=== PATIENT | female | born 1975 | race Caucasian/White ===

== ENCOUNTER → 2016-04-29 17:42 | Outpatient (CLI) | payer BC | END | disposition home or self-care (01) | LOC: D.MAMMO 08:30 | DX: R92.8 Other abnormal and inconclusive findings on diagnostic imaging of breast (principal) ==

== ENCOUNTER → 2017-05-19 16:43 | Outpatient (CLI) | payer BC | END | disposition home or self-care (01) | LOC: D.MAMMO 16:15 | DX: Z12.31 Encounter for screening mammogram for malignant neoplasm of breast (principal) ==

== ENCOUNTER 2018-08-07 05:39 | Inpatient (IN) | payer BC ==
[2018-08-04 11:26] LABS: BASOPHILS 0.2 % (0-2); EOSINOPHILS 0.6 % (0-7); HEMATOCRIT 40.2 % (36.0-48.0); HEMOGLOBIN 14.2 g/dL (12-16); IMMATURE GRANULOCYTES 0.2 % (0-5); LYMPHOCYTES 33.9 % (15-50); MCH 33.3 pg (26.0-34.0); MCHC 35.3 g/dL (31.0-37.0); MCV 94.1 fL (80.0-100.0); MEAN PLATELET VOLUME 8.7 fL (7.4-10.4); MONOCYTES 11.9 % (2-11); NEUTROPHILS 53.2 % (40-80); PLATELET COUNT 354 10x3/uL (130-400); RBC 4.27 10x6/uL (4.00-5.40); RDW 12.8 % (11.5-14.5)
[2018-08-04 11:40] LABS: CALC OSMOLALITY 276 mosm/kg (275-300); CALCIUM 9.6 mg/dL (8.5-10.1); CARBON DIOXIDE 25.7 mmol/L (21.0-32.0); CHLORIDE - SERUM 101 mmol/L (98-107); CREATININE - SERUM 0.8 mg/dL (0.6-1.3); GLUCOSE 107 mg/dL (74-106); POTASSIUM - SERUM 3.7 mmol/L (3.5-5.1); SODIUM 138 mmol/L (136-145); UREA NITROGEN 15 mg/dL (7-18); eGFR NON AFRICAN AMERICAN 82 mL/min (90-120)
[~2018-08-07] VITALS: Ht 152.4 cm; Wt 84.1 kg
[2018-08-07] VITALS (24 sets, daily range): BP systolic 119–157; BP diastolic 61–93; Ht 152.4 cm; Wt 84.1 kg
[~2018-08-07 05:39] MED LIST: CARDIZEM CD240 MG PO; COZAAR100 MG PO; HYDROCHLOROTHIA25 MG PO; LUNESTA2 M1 PO; PRAVACHOL40 MG PO
[2018-08-07] MEDS ORDERED: OMEPRAZOLE20 M1 PO (06:21)
[2018-08-07 06:33] LABS: HCG URINE NEGATIVE (NEGATIVE)
--- NOTE | 2018-08-07 11:58 | NUR ---
PT VOICES NO PAIN, JUST "I FEEL LIKE I NEED TO PEE". I VOICED TO PT THAT SHE HAS A HERRERA CATHETOR IN AND THAT IT CAN CAUSE PRESSURE TO FEEL LIKE SHE NEEDS TO VOICE. PT VOICED "OK". WILL CONTINUE TO MONITOR PAIN.
--- NOTE | 2018-08-07 13:00 | NUR ---
PT TO ROOM VIA STRETCHER FROM RR. MERY RN AT BEDSIDE AND STATES THAT REPORT HAS BEEN GIVEN TO PRIMARY NURSE, ANGEL VO. PT TRANSFERS TO BED PER SELF AND PLACED IN SEMI FOWLERS POSITION WITH PILLOW UNDER KNEES PER PT REQUEST. LR INFUSING TO IV IN LEFT WRIST, CONNECTED TO PUMP AT THIS TIME TO INFUSE AT 125ML/HR. IV SITE C/D/I. TEMP. 98.1; BP 147/78; P 107; R 18; O2 SAT 94% ON ROOM AIR. MERY RR RN STATES THAT SHE HAS REMAINED AROUND 94% DURING RR ROOM WELL. HERRERA IN PLACE AND DRAINING TO GRAVITY. 200MLS CLEAR YELLOW URINE NOTED IN COLLECTION CONTAINER. PT REPORTS DRY MOUTH AND DESIRE TO DRINK. WATER AND LIP BALM PROVIDED. ICE PACK PLACED OVER LOWER TRANSVERSE ABD INCISION. INCISION C/D/I WITH DERMABOND. PT GRIMACING AND REPORTS "DISCOMFORT." REPORTED TO PRIMARY RN.
--- NOTE | 2018-08-07 13:20 | NUR ---
PT NOTED TO HAVE CONTINUED O2SATS 91-94% DESPITE REMAINING ALERT AND TALKING. O2 INITIATED VIA NC AT 2L/MIN. O2 SAT INCREASED TO 97-98%. SCDS CONNECTED TO PUMP AND TURNED ON AT THIS TIME. PT REPORTS "PRESSURE AND CRAMPING" IN HER PELVIS. CONFIRMED WITH RR THAT THERE IS NO VAG. PACK IN PLACE. ABDOMEN SOFT TO PALPATION, PT DENIES INCREASED TENDERNESS WITH PALPATION. BS HYPO IN LOWER QUADRANTS, ACTIVE IN UPPER. NO VAGINAL BLEEDING NOTED AT THIS TIME. PT REPORTS THAT SHE TOOK HER HOME MEDICATION DOSE OF COREG THIS AM PRIOR TO SURGERY AND HER DAILY CARDIZEM ON 08/06/18 PRIOR TO BEDTIME. REPORT OF ABOVE NOTE GIVEN TO ANGEL MAYO RN.
--- NOTE | 2018-08-07 13:20 | NUR ---
DR VARELA TO ROOM TO DISCUSS POC WITH PT FAMILY. PT REPORTS TO MD THAT SHE WOULD LIKE HER PAIN MEDICATIONS TO BE SMALLER DOSES MORE FREQUENTLY. MD VERBALIZES UNDERSTANDING AND TO DESK TO GIVE FURTHER ORDERS TO PRIMARY RN.
--- NOTE | 2018-08-07 13:40 | NUR ---
report given to Dr Bedolla of pt request for a RECORDS CUSTODIAN. Order received for dilaudid salesperson neckties, see emar.
--- NOTE | 2018-08-07 14:00 | NUR ---
Assessment completed, pt is drowsy but will answer questions appropriatly. Rates pain at incision and lower back as a constant 7/10. Abdomen soft to touch and incision is clean and dry without dressing. Domínguez to bedside drain with 200ml clear yellow urine noted to canister. bowel sounds are hypoactive in both left and right lower quad. IV to left hand patent with no c/o tenderness, lr infusing per order via pump. SCD's as ordered and on pump. Dilaudid MULTIPLE PRESSURE RIVETER OPERATOR started, scanned to emar, and witnessed by Tc VO. Pt demonstrates understanding use of gifted teacher. Plan of care gone over with pt that is was ok with Dr Bedolla for her to transfer to CV/ICU as she previously requested. Family at bedside, side rails up x 2 with call light in reach.
--- NOTE | 2018-08-07 14:30 | NUR ---
REPORT CALLED TO [facility] CV/ICU.
--- NOTE | 2018-08-07 14:45 | NUR ---
Pt transfered via bed to CV/ICU with Milena Juan RN and Maria Isabel Armas RN.
--- NOTE | 2018-08-07 16:19 | NUR ---
PT RESTING QUIETLY AT THIS TIME. DENIES NEEDS. VSS. AT BEDSIDE. CALL LIGHT IN REACH.
--- NOTE | 2018-08-07 18:43 | NUR ---
SPOKE WITH DR VARELA ABOUT RESTARTING PT CARDIZEM. OK TO RESTART. HE WILL CALL EARLY AM TO CHECK ON PATIENT AND PROVIDE FURTHER ORDERS.
--- NOTE | 2018-08-07 19:29 | NUR ---
INFORMED BY DAY SHIFT RN THAT SHE HAD SPOKEN TO DR. VARELA REGARDING TACHYCARDIA, AND WAS INFORMED THAT IV FLUIDS WERE DECREASED TO 15 ML/HR DUE TO HIGH AMOUNT OF UOP. PATIENT STATES THAT SHE FEELS "BLADDER PRESSURE" ASSESSED HERRERA AND EMPTIED 1200 MLS OUT FROM COLLECTION BAG, PATIENT STATES THAT SHE FELT SOME RELIEF AFTER INTERVENTION. WILL CONTINUE TO MONITOR.
--- NOTE | 2018-08-07 19:31 | NUR ---
REPORT RECEIVED, SHIFT ASSESSMENT COMPLETED PER FLOW SHEET. PPP. LOWER ABDOMEN INCISION SITE NOTED, NO DRAINAGE. HERRERA CATHETER TO GRAVITY SECURED, DRAINING YELLOW UOP. LT WRIST PIV, PATENT, NO SIGNS OF INFECTION OR INFILTRATION NOTED. SEE FLOW SHEET FOR COMPLETE ASSESSMENT. CALL LIGHT AND SPECIMEN COLLECTOR BUTTON WITHIN REACH. JELL-O PROVIDED. WILL CONTINUE TO MONITOR.
--- NOTE | 2018-08-07 20:40 | NUR ---
CALL LIGHT ANSWERED, VANILLA ICE CREAM AND WATER PROVIDED PER PATIENT'S REQUEST. DENIES OTHER NEEDS. CALL LIGHT WITHIN REACH.
--- NOTE | 2018-08-07 22:00 | NUR ---
RESTING, NO ACUTE DISTRESS NOTED. DENIES NEEDS. CALL LIGHT WITHIN REACH.
--- NOTE | 2018-08-07 23:20 | NUR ---
REASSESSMENT COMPLETED PER FLOW SHEET, SEE FOR DETAILS. NO ACUTE DISTRESS NOTED. WILL CONTINUE TO MONITOR.
[2018-08-08] VITALS (26 sets, daily range): BP systolic 97–148; BP diastolic 48–82
--- NOTE | 2018-08-08 01:00 | NUR ---
RESTING, NO ACUTE DISTRESS NOTED. WILL CONTINUE TO MONITOR.
--- NOTE | 2018-08-08 02:08 | NUR ---
CALL LIGHT ANSWERED. WATER AND RED JELL-O PROVIDED. DENIES OTHER NEEDS. CALL LIGHT WITHIN REACH.
--- NOTE | 2018-08-08 03:37 | NUR ---
REASSESSMENT COMPLETED PER FLOW SHEET, SEE FOR DETAILS. NO ACUTE DISTRESS NOTED. DENIES NEEDS. WILL CONTINUE TO MONITOR. CALL LIGHT WITHIN REACH.
--- NOTE | 2018-08-08 05:00 | NUR ---
ICE PACK PROVIDED PER PATIENT'S REQUEST. DENIES OTHER NEEDS. CALL LIGHT AND SOCIAL SECRETARY BUTTON WITHIN REACH. WILL CONTINUE TO MONITOR.
--- NOTE | 2018-08-08 05:25 | NUR ---
SPOKE TO DR. VARELA, NEW ORDERS RECEIVED TO D/C IV AND IV FLUIDS, BUSINESS SEGMENT MANAGER, AND HERRERA, AND TO ORDER CBC AND CMP.
--- NOTE | 2018-08-08 05:37 | NUR ---
DISCONTINUED PIV, CATHETER TIP INTACT. D/C'D IV FLUIDS AND ELECTROMEDICAL EQUIPMENT TECHNICIAN. D/C'D HERRERA. TOLERATED ALL WELL.
[2018-08-08 06:41] LABS: BASOPHILS 0 % (0-2); EOSINOPHILS 0 % (0-7); HEMATOCRIT 41.3 % (36.0-48.0); HEMOGLOBIN 14.6 g/dL (12-16); IMMATURE GRANULOCYTES 0.2 % (0-5); LYMPHOCYTES 6.4 % (15-50); MCH 33.1 pg (26.0-34.0); MCHC 35.4 g/dL (31.0-37.0); MCV 93.7 fL (80.0-100.0); MEAN PLATELET VOLUME 8.9 fL (7.4-10.4); MONOCYTES 10.3 % (2-11); NEUTROPHILS 83.1 % (40-80); PLATELET COUNT 374 10x3/uL (130-400); RBC 4.41 10x6/uL (4.00-5.40); RDW 12.5 % (11.5-14.5); WBC 19.6 10x3/uL (4.8-10.8)
[2018-08-08 06:52] LABS: ANION GAP 16.8 mmol/L (8-16); BILIRUBIN - TOTAL 0.5 mg/dL (0.2-1.3); CALCIUM 9.2 mg/dL (8.5-10.1); CREATININE - SERUM 0.9 mg/dL (0.6-1.3); POTASSIUM - SERUM 3.8 mmol/L (3.5-5.1)
--- NOTE | 2018-08-08 08:06 | NUR ---
DR VARELA AT BEDSIDE SPEAKING WITH PATIENT AND . PLANS FOR ADDITIONAL DAY STAY FOR ANTIBIOTIC ADMINISTRATION.
--- NOTE | 2018-08-08 08:32 | OP ---
PATIENT NAME: INEZ ZAMORANO MEDICAL RECORD: [id number] :71 LOCATION:[facility] ADMISSION DATE: SURGEON: ZACKARY VARELA MD DATE OF OPERATION: 08/07/2018 PREOPERATIVE DIAGNOSIS: Symptomatic fibroid uterus. POSTOPERATIVE DIAGNOSES: 1. Symptomatic fibroid uterus. 2. Pelvic adhesions. PROCEDURES: 1. Exam under anesthesia. 2. Exploratory laparotomy. 3. Total abdominal hysterectomy. SURGEON: Zackary Varela MD ANESTHESIOLOGIST: Shahriar Baumann MD ANESTHETIC: General. FINDING: Uterus was enlarged to approximately 18-week size. A large fundal fibroid was present as well as multiple other fibroids. The left ovary was adhesed to the left body of the uterus. Right ovary and tube were unremarkable. Left tube was unremarkable. Both tubes were interrupted due to previous tubal ligation. SPECIMENS REMOVED: Uterus with cervix and bilateral tubes. SPECIMEN DISPOSITION: All specimens to pathology. ESTIMATED BLOOD LOSS: Less than or equal to 175 cc. FLUIDS: Two liters lactated Ringer's. URINE OUTPUT: Clear urine, 750 cc. COMPLICATIONS: None. DRAINS: Domínguez to gravity. INDICATION: The patient is a 42-year-old female with symptomatic fibroid uterus. The patient has been offered alternatives to hysterectomy and wishes to proceed. The planned procedure was for possible total laparoscopic hysterectomy, but exam under anesthesia with irregular contour laterally and the attempt at total laparoscopic procedure was abandoned for an open procedure. DESCRIPTION OF PROCEDURE: After informed consent was assured, the patient was taken to the operating room, where anesthetic was obtained. The patient was prepped and draped and frog-legged on the table. A bimanual exam prior to prepping and draping revealed irregular contour to the uterus deep laterally. Due to concerns of fibroids of her blood supply, the patient was positioned immediately for an open procedure. The patient was prepped and draped and an incision was made over the old scar, carried down to the underlying layer of the OPERATIVE REPORT [id number] INEZ ZAMORANO fascia, which was opened in the midline and extended laterally. The rectus bellies were dissected free superiorly and inferiorly and then in the midline. The peritoneum was entered sharply and the peritoneal opening was extended. The uterus was brought to the incision. The bowel was packed with 3 laparotomy sponges and a malleable was placed in the cul-de-sac. The cornual regions were cross-clamped with straight clamps and the left round ligament was elevated. This round ligament was stick tied laterally and opened with Bovie cautery. Dissection was carried down to the bladder flap. Once the bladder had been mobilized, a window was developed on the posterior leaf of the left side and 2 clamps were passed through here. The pedicle was developed sharply with scissors and then a free tie and a tauq-oot-sqn stitch were applied on the uteroovarian ligament for hemostasis. The connective tissue surrounding the left vascular bundle was taken down and then the vessels were clamped, cut, and tied at the level of the internal os. Attention was now directed to the right side. The right round ligament was elevated and opened after being stick tied. A window was made in the posterior leaf, and through this window, 2 clamps were passed. The lateral clamp undermined the right ovary and it was incorporated in the specimen. The bladder flap was now developed anteriorly to its full extent. The connective tissue of the right side was skeletonized and the vessels were now clamped and cut with Toro scissors. A Dyan stitch was applied for hemostasis. Using a scalpel, the uterus was now removed. After removal of the uterus, the remaining portion of the cardinal ligaments were serially clamped, cut, and tied with straight clamps until the level of the uterosacral ligaments were reached. The cervix was now cross-clamped at the superior aspect of the vagina and the cervix was removed with Skylar scissors. Interrupted bznbvc-yr-fscoe stitches were used to close the center of the cuff and Dyan stitches were used laterally. Inspection revealed some bleeding from the raw edges of the bladder. This was copiously irrigated, irrigant removed, and bleeding vessels were cauterized. Peritoneum was bleeding on the left side and a tyozam-ur-idxik with 3-0 Vicryl on a SH was used here. After inspection of the bladder flap, Gelfoam was placed in this space. After this had been completed, attention was directed back to the left ovary, where the distal portion of the left tube was still attached. A clamp was placed underneath this and it was freed with scissors and then a tovs-ljo-kbl stitch was applied for hemostasis. The sponges were removed and sponge count was correct times 1. The pelvis was again inspected and adequate hemostasis has been achieved. The rectus bellies were closed with loose interrupted stitches and the second sponge count was now correct. The fascia was now closed with looped PDS. Subcutaneous tissue was irrigated and bleeding vessels were cauterized. This space was closed with plain gut stitch and then the skin was reapproximated with subcuticular stitch. It was noted that the patient's IUD was in place in the uterus and removed with the specimen. Sponge, lap, and needle counts were correct times 2 at the close of this procedure. TRANSINT:[id number] Voice Confirmation ID: [id number] DOCUMENT ID: [id number] ZACKARY VARELA MD at 0832 CC: [id number] DICTATION DATE: 08/07/181717 WRAPPING CHECKER: 08/07/181927 [facility] [address] [place] [address]
--- NOTE | 2018-08-08 11:37 | NUR ---
SPOKE WITH DR VARELA ABOUT RESTARTING PT HOME MEDICATION COZAAR AND HCTZ WELL STARTING A STOOL SOFTENER. NEW ORDERS RECEIVED.
--- NOTE | 2018-08-08 14:04 | NUR ---
PT SLEEPING AT THIS TIME. NO DISTRESS NOTED. VSS.
--- NOTE | 2018-08-08 16:03 | NUR ---
GABAPENTIN GIVEN SCHEDULED. FAMILY NOW AT VISITATION. PT DENIES ANY ADDITIONAL NEEDS, CALL LIGHT IN REACH.
--- NOTE | 2018-08-08 17:23 | NUR ---
DR VARELA CALLED TO CHECK ON PATIENT. WILL CALL EARLY IN AM TO GIVE ORDERS FOR DISCHARGE.
--- NOTE | 2018-08-08 19:40 | NUR ---
REPORT RECEIVED, SHIFT ASSESSMENT COMPLETED PER FLOW SHEET, SEE FOR DETAILS. ALERT AND ORIENTED. RT HAND PIV PATENT, DRESSING C/D/I, SALINE LOCKED. NO ACUTE DISTRESS NOTED. WILL CONTINUE TO MONITOR.
--- NOTE | 2018-08-08 20:29 | NUR ---
SCHEDULED MEDS GIVEN. DENIES NEEDS AT THIS TIME. CALL LIGHT WITHIN REACH.
--- NOTE | 2018-08-08 22:00 | NUR ---
PATIENT GAVE SELF A CHLORHEXIDINE BATH. DENIES NEEDS AT THIS TIME.
--- NOTE | 2018-08-08 23:17 | NUR ---
REASSESSMENT COMPLETED PER FLOW SHEET, SEE FOR DETAILS. LT AC PIV PLACED BY LACEY VO X1 ATTEMPT. PATIENT DENIES NEEDS AT THIS TIME. WILL CONTINUE TO MONITOR.
--- NOTE | 2018-08-08 23:57 | NUR ---
C/O "BURNING" PAIN TO INCISION SITE. INCISION SITE ASSESSED, APPROXIMATED, SOME BRUISING NOTED TO PAINFUL SITE, NO DRAINAGE OR SIGNS OF INFECTION. PRN PERCOCET GIVEN AND BENADRYL GIVEN FOR ITCHING.
[2018-08-09 00:38] VITALS: BP 126/67
--- NOTE | 2018-08-09 01:09 | NUR ---
SCHEDULED CLEOCIN ADMINISTERED. DENIES NEEDS. CALL LIGHT WITHIN REACH.
[2018-08-09 01:38] VITALS: BP 113/62
[2018-08-09 02:38] VITALS: BP 109/60
[2018-08-09 03:00] VITALS: BP 109/60
--- NOTE | 2018-08-09 03:21 | NUR ---
REASSESSMENT COMPLETED PER FLOW SHEET, SEE FOR DETAILS. VSS.
[2018-08-09 03:42] VITALS: BP 135/76
[2018-08-09 04:43] LABS: BASOPHILS 0.1 % (0-2); EOSINOPHILS 0.1 % (0-7); HEMATOCRIT 36.4 % (36.0-48.0); HEMOGLOBIN 12.3 g/dL (12-16); IMMATURE GRANULOCYTES 0.2 % (0-5); LYMPHOCYTES 18.1 % (15-50); MCH 32.4 pg (26.0-34.0); MCHC 33.8 g/dL (31.0-37.0); MEAN PLATELET VOLUME 9.1 fL (7.4-10.4); MONOCYTES 8.9 % (2-11); NEUTROPHILS 72.6 % (40-80); PLATELET COUNT 309 10x3/uL (130-400); RDW 13.1 % (11.5-14.5)
[2018-08-09 04:44] LABS: MCV 95.8 fL (80.0-100.0); WBC 13.9 10x3/uL (4.8-10.8)
[2018-08-09 04:58] LABS: ALBUMIN 3.4 g/dL (3.4-5.0); ALKALINE PHOSPHATASE 51 U/L (46-116); ALT (SGPT) 42 U/L (10-68); BILIRUBIN - TOTAL 0.35 mg/dL (0.2-1.3); CALC OSMOLALITY 279 mosm/kg (275-300); CALCIUM 8.5 mg/dL (8.5-10.1); CARBON DIOXIDE 25.5 mmol/L (21.0-32.0); CHLORIDE - SERUM 104 mmol/L (98-107); CREATININE - SERUM 0.7 mg/dL (0.6-1.3); GLUCOSE 119 mg/dL (74-106); POTASSIUM - SERUM 3.4 mmol/L (3.5-5.1); PROTEIN - SERUM 7.1 g/dL (6.4-8.2); SODIUM 140 mmol/L (136-145); UREA NITROGEN 12 mg/dL (7-18); eGFR NON AFRICAN AMERICAN > 90 mL/min (90-120)
--- NOTE | 2018-08-09 05:00 | NUR ---
PATIENT AMBULATING IN UNIT, GAIT STEADY. NO ACUTE DISTRESS NOTED.
--- NOTE | 2018-08-09 07:00 | NUR ---
SPOKE TO DR. VARELA HE STATED THAT HE WOULD PUT DISCHARGE ORDERS AROUND [phone].
--- NOTE | 2018-08-09 07:30 | NUR ---
ASSESSMENT COMPLETED AT BEDSIDE, VSS, C/O PAIN 5/10 MEDS GIVEN BY NIGHT NURSE, UP A DRESSED FOR GOING HOME, AWAITING DISCHARGE ORDERS FROM DR VARELA, NO OHTER NEEDS A THIS TIME
--- NOTE | 2018-08-09 08:15 | NUR ---
MOTHER AT BEDSIDE, NO NEEDS A THIS TIME AWAITING APPROVAL FOR DISCHARGE
--- NOTE | 2018-08-09 08:29 | NUR ---
MORNING MEDS GIVEN PER MAY FLOWSHEET
--- NOTE | 2018-08-09 08:55 | NUR ---
DC WITH MOTHER, AAO, NO NEEDS A THIS TIME
--- NOTE | 2018-08-10 16:30 | MORECARE ---
CASE MANAGEMENT DISCHARGE SUMMARY PATIENT: INEZ ZAMORANO UNIT: [id number] ADM DATE: 08/08/18 AGE: 42 : [birth year] SEX: F ROOM/BED: [facility] AUTHOR: JERSON MATA PHYSICIAN: REFERRING PHYSICIAN: CLARIBEL VARELA MD DATE OF SERVICE: 08/10/18 Discharge Plan Patient Name: INEZ ZAMORANO Facility: [facility]:[place] : 1975 Planned Disposition: Home Anticipated Discharge Date: Discharge Date: 08/09/2018 Expected LOS: Initial Reviewer: [email or web address] Initial Review Date: 08/08/2018 Generated: 08/10/18 5:30 pm Patient Name: INEZ ZAMORANO Page [id number] at 1630 All edits/amendments must be made on the electronic document DICTATION DATE: 08/10/18 163 COORDINATOR OF GENETIC SERVICES: TACOS 08/10/18 1630 RPT#: [id number] DC DATE:08/09/18 STATUS: DIS IN [facility] [address] [facility] [place] [address] END OF REPORT
--- NOTE | 2018-08-10 16:40 | MORECARE ---
CASE MANAGEMENT DISCHARGE SUMMARY PATIENT: INEZ ZAMORANO UNIT: [id number] ADM DATE: 08/08/18 AGE: 42 : 71 SEX: F ROOM/BED: [facility] AUTHOR: JERSON MATA PHYSICIAN: REFERRING PHYSICIAN: CLARIBEL VARELA MD DATE OF SERVICE: 08/10/18 Discharge Plan Patient Name: INEZ ZAMORANO Facility: [facility]:[place] : 1975 Planned Disposition: Home Anticipated Discharge Date: Discharge Date: 08/09/2018 Expected LOS: Initial Reviewer: [email or web address] Initial Review Date: 08/08/2018 Generated: 08/10/18 5:40 pm Comments DCP- Discharge Planning Updated by [email or web address]: Marina Almanza on 08/10/18 3:[address] LATE ENTRY 08/07/18 @ 1900 CM met with patient at bedside. Patient states she lives at home and plans to return to her home upon discharge. Patient denies any discharge needs at this time. CM will continue to follow and assist as needed with discharge planning / needs. Last DP export: 08/10/18 3:30 p Patient Name: INEZ ZAMORANO Page [phone] at 1640 All edits/amendments must be made on the electronic document DICTATION DATE: 08/10/18 1640 CAKE INSPECTOR: TACOS 08/10/18 1640 RPT#: [id number] DC DATE:08/09/18 STATUS: DIS IN [facility] [address] [place] [address] END OF REPORT
== END 2018-08-09 08:55 | disposition home or self-care (01) | DRG 983 ==
LOC: D.OPS 05:39 → D.PAN 07:30 → D.OPS 07:30 → D.LD 12:47 → D.CVICU 17:08 → D.OPS 08-08 09:51 → D.CVICU 08-08 09:55
PROVIDERS: ADMIT Obstetrics & Gynecology; ATTEND Obstetrics & Gynecology
PROC: 0UT90ZZ Resection of Uterus, Open Approach (ICD-10-PCS; principal; 2018-08-08)
PROC: 0W3R0ZZ Control Bleeding in Genitourinary Tract, Open Approach (ICD-10-PCS; 2018-08-08)
PROC: 0UT10ZZ Resection of Left Ovary, Open Approach (ICD-10-PCS; 2018-08-08)
DX: D72.829 Elevated white blood cell count, unspecified (principal); D25.9 Leiomyoma of uterus, unspecified; N73.6 Female pelvic peritoneal adhesions (postinfective)

== ENCOUNTER → 2018-09-20 11:30 | Outpatient (CLI) | payer BC ==
[2018-08-07 16:06] VITALS: BMI 28.3
[~2018-09-20 11:30] MED LIST changes: +OMEPRAZOLE20 M1 PO
== END | disposition home or self-care (01) ==
LOC: D.MAMMO 11:30
PROVIDERS: ATTEND Family Medicine
DX: Z12.31 Encounter for screening mammogram for malignant neoplasm of breast (principal)

== ENCOUNTER → 2019-07-06 10:00 | Outpatient (CLI) | payer BC ==
[2018-08-07 16:06] VITALS: BMI 28.3
== END | disposition home or self-care (01) ==
LOC: D.US 10:00
PROVIDERS: ATTEND Family Medicine
DX: R74.8 Abnormal levels of other serum enzymes (principal)

== ENCOUNTER 2020-06-19 05:35 | Day surgery (SDC) | payer BC ==
[2020-06-16 16:24] LABS: BASOPHILS 0.2 % (0-2); EOSINOPHILS 0.5 % (0-7); HEMATOCRIT 40.4 % (36.0-48.0); LYMPHOCYTE ABS# 2.16 10x3/uL (1.18-3.74); LYMPHOCYTES 35.8 % (15-50); MCH 32.6 pg (26.0-34.0); MCHC 34.7 g/dL (31.0-37.0); MEAN PLATELET VOLUME 8.7 fL (7.4-10.4); MONOCYTES 13.1 % (2-11); NEUTROPHIL ABS# 3.04 10x3/uL (1.56-6.13); NEUTROPHILS 50.4 % (40-80); PLATELET COUNT 402 10x3/uL (130-400); RDW 12.8 % (11.5-14.5)
[2020-06-16 16:30] LABS: ANION GAP 12.2 mmol/L (8-16); CALCIUM 9.2 mg/dL (8.5-10.1); CARBON DIOXIDE 25.8 mmol/L (21.0-32.0); CREATININE - SERUM 1.1 mg/dL (0.6-1.3)
[~2020-06-19] VITALS: Ht 152.4 cm; Wt 76.4 kg
--- NOTE | ~2020-06-19 | OP ---
PATIENT NAME: INEZ ABEL MEDICAL RECORD: [id number] :71 [facility]ATION[facility] ADMISSION DATE: SURGEON: MOISE FUENTES MD DATE OF OPERATION: 06/19/2020 PREOPERATIVE DIAGNOSIS: Left carpal tunnel syndrome. POSTOPERATIVE DIAGNOSIS: Left carpal tunnel syndrome. PROCEDURE PERFORMED: Left carpal tunnel release. INDICATIONS FOR THE PROCEDURE: Ms. Abel is a 44-year-old female with history of numbness and tingling in the left hand and fingers. She has been dealing with this for some time now. Symptoms are getting progressively worse. We have been treating her for carpal tunnel syndrome and at this point she would like to proceed with surgery for left carpal tunnel release. Risks, benefits and alternatives of surgery were discussed with the patient including, not limited to pain, infection, bleeding, damage to surrounding structures, particularly the median nerve and potential need for further surgery. All questions were answered and consent was obtained. DESCRIPTION OF PROCEDURE: The patient was met in the holding area where her identity and confirmation of procedure was performed. Left upper extremity was marked. She was taken to the operating room where she was placed supine on the operating table and anesthesia was administered. Tourniquet was applied to the left arm and left arm was prepped and draped in a sterile fashion. The patient received preoperative antibiotics and timeout was performed before initiating the case. On initiation of the case, the arm was exsanguinated and the tourniquet was raised. Total tourniquet time was 15 minutes. Incision was made into palm over the carpal tunnel in line with the fourth ray. We incised through the skin and subcutaneous tissues, dissected down to the transverse carpal ligament. The ligament was then incised and a freer was inserted. We continued our release distally until it was completely released and then turned and released proximally to complete the carpal tunnel release. This was all performed under direct visualization. Wound was irrigated thoroughly with saline. The carpal tunnel was explored, did not have any abnormalities. There was noted to be quite a bit of thickened synovium and flattening of the median nerve. The tourniquet was let down. Hemostasis was obtained. A 0.25% plain Marcaine was injected in the subcutaneous tissues. The wound was then closed with nylon suture and a sterile dressing was placed. The patient was turned back over to anesthesia where she was awakened and taken to the recovery room in stable condition. POSTOPERATIVE PLAN: The patient is going to return home with her family today. She needs to limit physical activity with that hand for the next few weeks. We will see her back in clinic in 2 weeks. COMPLICATIONS: None. ESTIMATED BLOOD LOSS: 5 mL. ANESTHESIA: General. TRANSINT:[id number] Voice Confirmation ID: [id number] DOCUMENT ID: [id number] OPERATIVE REPORT [id number] INZE ABEL BRENT M MD CC: [id number] DICTATION DATE: 06/19/20850 TECHNICAL WRITING LEAD/MGR: 06/19/20 0952 [facility] [place] [id number] [place] [id number]
[~2020-06-19 05:35] MED LIST changes: +BYSTOLIC20 MG PO
[2020-06-19 07:10] VITALS: BP 132/81; Ht 152.4 cm; Wt 76.4 kg
--- NOTE | 2020-06-19 11:18 | NUR ---
0930 PT REQUESTING PAIN MEDICATION/RATES PAIN A 5 OUT OF 10. 1020 PAIN LEVEL IS A 3 OUT OF 10 AFTER NORCO. IV DC'D. CATHETER TIP INTACT. NO BLEEDING AT SITE. BANDAID APPLIED. 1039 PT IS DRESSED AND READY FOR DISCHARGE HOME. REVIEWED DISCHARGE INSTRUCTIONS WITH PT WHO VOICES UNDERSTANDING OF THESE INSTRUCTIONS.
== END 2020-06-19 10:39 | disposition home or self-care (01) ==
LOC: D.OPS 05:35
PROVIDERS: Anesthesiology; ATTEND Orthopaedic Surgery
DX: G56.02 Carpal tunnel syndrome, left upper limb (principal)